=== PATIENT | female | born 1990 | race Two or more races ===

== ENCOUNTER 2017-02-21 12:12 | Emergency (ER) | payer BC, OTHER ==
[~2017-02-21] VITALS: Ht 154.9 cm; Wt 80.3 kg
[2017-02-21 12:22] VITALS: BP 103/75
[2017-02-21] MEDS ORDERED: KETOROLAC TROMETH 60MG/2ML VIAL IM ONE (13:45)
== END 2017-02-21 15:14 | disposition home or self-care (01) ==
LOC: ER 12:12 → EDBD 12:12 → ER 15:11
DX: S13.4XXA Sprain of ligaments of cervical spine, initial encounter (principal); E66.01 Morbid (severe) obesity due to excess calories; Z68.33 Body mass index [BMI] 33.0-33.9, adult; V43.52XA Car driver injured in collision with other type car in traffic accident, initial encounter; Y93.89 Activity, other specified; Y92.89 Other specified places as the place of occurrence of the external cause; Y99.8 Other external cause status
CPT/HCPCS: 72125; 96372; 99284; J1885